=== PATIENT | female | born 1995 | race Hispanic/Latino ===

== ENCOUNTER 2020-09-01 12:43 | Emergency (ER) | payer OTHER ==
[2020-09-01 13:43] LABS: Urine Blood TRACE (NEG); Urine Glucose NEGATIVE (NEG); Urine Protein NEGATIVE (NEG); Urine Specific Gravity >1.030 (1.005-1.030); Urine pH 5.5 (5.0-7.0)
[2020-09-01 13:49] LABS: Urine Bacteria LOADED /HPF (<20); Urine Culture Reflex Order NOT NEEDED; Urine RBC <5 /HPF (NONE SEEN)
[2020-09-01 15:09] LABS: Absolute Lymphocytes (CBC) 2.4 K/uL (0.7-4.9); Basophils % 0.5 % (0-1.3); Hematocrit 41.8 % (36.0-45.0); Lymphocytes % 20.2 % (15.3-44.8); MPV 9.2 fL (7.6-11.3); RBC Red Blood Cell Count 4.67 M/uL (3.86-4.86)
[2020-09-01] MEDS ORDERED: CEFTRIAXONE/SWI 1gm 1 GM/10 ML SYR ONE (15:09)
[2020-09-01] MEDS ORDERED: NA CHLORIDE 0.9% 1,000 ML ONE (15:09)
[2020-09-01 15:41] LABS: BUN Blood Urea Nitrogen 10 mg/dL (7-18); Bicarbonate 27 mmol/L (21-32); Glucose Level 80 mg/dL (74-106); HCG, Quantitative 78497 mIU/mL (1-3); Potassium 3.6 mmol/L (3.5-5.1); Sodium Level 141 mmol/L (136-145)
--- NOTE | 2020-09-01 16:17 | ER ---
Nurse's Notes [facility] Name: Rosemary Dodd Age: 25 yrs Sex: Female : 1995 Arrival Date: 09/01/2020 Time: 12:46 Bed Ultrasound Private MD: Diagnosis: Dysuria;Urinary tract infection, site not specified; related conditions, unspecified, first trimester;Cholelithiasis;Threatened Presentation: 09/01 13:00 Chief complaint: Patient states: burning with urination since Tuesday, reports being 7 sv weeks . Coronavirus screen: Client denies travel out of the [place] in the last 14 days. At this time, the client does not indicate any symptoms associated with coronavirus-19. Ebola Screen: No symptoms or risks identified at this time. Risk Assessment: Do you want to hurt yourself or someone else? Patient reports no desire to harm self or others. Onset of symptoms was August 29, 2020. 13:00 Method Of Arrival: Ambulatory sv 13:00 Acuity: ROMELIA 4 sv 13:01 Initial Sepsis Screen: Does the patient meet any 2 criteria? No. Patient's initial sv sepsis screen is negative. Does the patient have a suspected source of infection? No. Patient's initial sepsis screen is negative. Triage Assessment: 13:03 General: Appears in no apparent distress. comfortable, Behavior is calm, cooperative, sv appropriate for age. Pain: Denies pain. Neuro: Level of Consciousness is awake, alert, obeys commands, Oriented to person, place, time, situation, Gait is steady. Respiratory: Respiratory effort is even, unlabored. : Reports burning with urination. 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 - Social history:: Smoking status: Patient denies any tobacco usage or history of. - Family history:: not pertinent. Screenin:03 Abuse screen: Denies threats or abuse. Denies injuries from another. Nutritional jl7 screening: No deficits noted. Tuberculosis screening: No symptoms or risk factors identified. Fall Risk IV access (20 points). Total Stovall Fall Scale indicates No Risk (0-24 pts). Assessment: 14:45 General: Appears in no apparent distress. uncomfortable, Behavior is calm, cooperative, jl7 appropriate for age. Pain: Complains of pain in right low back and right mid back Pain currently is 5 out of 10 on a pain scale. Neuro: Level of Consciousness is awake, alert, obeys commands, Oriented to person, place, time, situation. Cardiovascular: Patient's skin is warm and dry. Respiratory: Airway is patent Respiratory effort is even, unlabored, Respiratory pattern is regular, symmetrical. GI: Abdomen is round non-distended. : Reports burning with urination. Derm: Skin is pink, warm \T\ dry. 16:34 Reassessment: Pt has not returned from [place], will discharged pt after returning from [facility] and medicating as ordered. Vital Signs: 13:01 BP 108 / 74; Pulse 77; Resp 16; Temp 98.4; Pulse Ox 99% ; Weight 102.51 kg; Height 4 sv ft. 9 in. (144.78 cm); 13:01 Body Mass Index 48.90 (102.51 kg, 144.78 cm) sv ED Course: 12:46 Patient arrived in ED. ds1 13:00 Triage completed. sv 13:00 Arm band placed on. sv 14:36 Darren White MD is Attending Physician. olivier 14:42 Harleen Partida, KEIRY is Primary Nurse. jl7 15:03 Patient has correct armband on for positive identification. Placed in gown. Bed in low jl7 position. Call light in reach. Side rails up X 1. Pulse ox on. NIBP on. Warm blanket given. 15:03 Initial lab(s) drawn, by la, sent to lab. Urine collected: clean catch specimen, clear. jl7 Inserted saline lock: 22 gauge in left antecubital area, using aseptic technique. Blood collected. 16:12 US Transvaginal Ob In Process Unspecified. EDMS 16:17 Lenin Yousif MD is Referral Physician. [facility] 16:33 Abdomen Exam Limited In Process Unspecified. EDMS 17:07 No provider procedures requiring assistance completed. IV discontinued, intact, em bleeding controlled, No redness/swelling at site. Pressure dressing applied. Administered Medications: 14:55 Drug: NS 0.9% 1000 ml Route: IV; Rate: 1 bolus; Site: left antecubital; jl7 17:06 Follow up: IV Status: Order to discontinue infusion em 14:55 Drug: Rocephin 1 grams Route: IV; Rate: per protocol; Site: left antecubital; jl7 17:06 Follow up: Response: No adverse reaction; IV Status: Completed infusion; IV Intake: 10mlem 16:49 Drug: Augmentin 875 mg Route: PO; em 17:06 Follow up: Response: No adverse reaction em Intake: 17:06 IV: 10ml; Total: 10ml. em Outcome: 16:17 Discharge ordered by . olivier 17:07 Discharged to home ambulatory. em 17:07 Condition: good 17:07 Discharge instructions given to patient, Instructed on discharge instructions, follow up and referral plans. medication usage, safe sex practices, Demonstrated understanding of instructions, follow-up care, medications, Prescriptions given X 2. 17:07 Patient left the ED. em Addendum: 09/03/2020 08:26 Addendum: Culture Results: Positive urine culture. No further action required. Bacteria s s sensitive to prescribed antibiotic. Signatures: Dispatcher [employer] Trang Forte RN RN sv Anderson, Corey, MD MD cha Munoz, Edgar RN Kary Moreno ds1 Biibana Morrell RN RN ss Leal, Jahala, RN RN jl7 Corrections: (The following items were deleted from the chart) 09/01 13:03 13:01 Pulse 77bpm; Resp 16bpm; Pulse Ox 99%; Temp 98.4F; 102.51 kg; Height 4 ft. 9 in.; sv BMI: 48.9; sv
--- NOTE | 2020-09-01 16:17 | EDPHYS ---
Physician Documentation [facility] Name: Rosemary Dodd Age: 25 yrs Sex: Female : 1995 Arrival Date: 09/01/2020 Time: 12:46 Bed Ultrasound Private MD: Darren Land HPI: 09/01 14:51 This 25 yrs old Female presents to ER via Ambulatory with complaints of Back olivier Pain, 7 Wks Preg-Kidney Pain. 14:51 The patient complains of pain in the right mid back and right low back. The pain does olivier not radiate. Onset: The symptoms/episode began/occurred 3 day(s) ago. Modifying factors: The symptoms are alleviated by nothing. the symptoms are aggravated by nothing. The patient presents to the emergency department with urinary symptoms, dysuria, frequency. The estimated gestational age is 7 weeks. course: care: none. 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 - Social history:: Smoking status: Patient denies any tobacco usage or history of. - Family history:: not pertinent. ROS: 14:51 Constitutional: Negative for fever, chills, and weight loss, Eyes: Negative for injury, olivier pain, redness, and discharge, ENT: Negative for injury, pain, and discharge, Neck: Negative for injury, pain, and swelling, Cardiovascular: Negative for chest pain, palpitations, and edema, Respiratory: Negative for shortness of breath, cough, wheezing, and pleuritic chest pain, Abdomen/GI: Negative for abdominal pain, nausea, vomiting, diarrhea, and constipation, : Negative for injury, bleeding, discharge, and swelling, MS/Extremity: Negative for injury and deformity, Skin: Negative for injury, rash, and discoloration, Neuro: Negative for headache, weakness, numbness, tingling, and seizure, Psych: Negative for depression, anxiety, suicide ideation, homicidal ideation, and hallucinations, Allergy/Immunology: Negative for hives, rash, and allergies, Endocrine: Negative for neck swelling, polydipsia, polyuria, polyphagia, and marked weight changes, Hematologic/Lymphatic: Negative for swollen nodes, abnormal bleeding, and unusual bruising. 14:51 Back: Positive for decreased range of motion, pain at rest, flank pain, on the right. Exam: 14:51 Constitutional: This is a well developed, well nourished patient who is awake, alert, olivier and in no acute distress. Head/Face: Normocephalic, atraumatic. Eyes: Pupils equal round and reactive to light, extra-ocular motions intact. Lids and lashes normal. Conjunctiva and sclera are non-icteric and not injected. Cornea within normal limits. Periorbital areas with no swelling, redness, or edema. ENT: Nares patent. No nasal discharge, no septal abnormalities noted. Tympanic membranes are normal and external auditory canals are clear. Oropharynx with no redness, swelling, or masses, exudates, or evidence of obstruction, uvula midline. Mucous membranes moist. Neck: Trachea midline, no thyromegaly or masses palpated, and no cervical lymphadenopathy. Supple, full range of motion without nuchal rigidity, or vertebral point tenderness. No Meningismus. Chest/axilla: Normal chest wall appearance and motion. Nontender with no deformity. No lesions are appreciated. Cardiovascular: Regular rate and rhythm with a normal S1 and S2. No gallops, murmurs, or rubs. Normal PMI, no JVD. No pulse deficits. Respiratory: Lungs have equal breath sounds bilaterally, clear to auscultation and percussion. No rales, rhonchi or wheezes noted. No increased work of breathing, no retractions or nasal flaring. Abdomen/GI: Soft, non-tender, with normal bowel sounds. No distension or tympany. No guarding or rebound. No evidence of tenderness throughout. Female : Normal external genitalia. Skin: Warm, dry with normal turgor. Normal color with no rashes, no lesions, and no evidence of cellulitis. MS/ Extremity: Pulses equal, no cyanosis. Neurovascular intact. Full, normal range of motion. Neuro: Awake and alert, GCS 15, oriented to person, place, time, and situation. Cranial nerves II-XII grossly intact. Motor strength 5/5 in all extremities. Sensory grossly intact. Cerebellar exam normal. Normal gait. Psych: Awake, alert, with orientation to person, place and time. Behavior, mood, and affect are within normal limits. 14:51 Back: pain, that is mild, ROM is normal, normal spinal alignment noted, CVA tenderness, is absent. 16:30 Abdomen/GI: Inspection: abdomen appears normal, Bowel sounds: normal, Palpation: [facility] abdomen is soft and non-tender, Liver: no appreciated palpable abnormalities, Hernia: not appreciated. Vital Signs: 13:01 BP 108 / 74; Pulse 77; Resp 16; Temp 98.4; Pulse Ox 99% ; Weight 102.51 kg; Height 4 sv ft. 9 in. (144.78 cm); 13:01 Body Mass Index 48.90 (102.51 kg, 144.78 cm) sv MDM: 14:36 Patient medically screened. olivier 14:53 Differential diagnosis: nephrolithiasis, pyelonephritis, UTI, STD, threatened Ab. Data olivier reviewed: vital signs, nurses notes, lab test result(s), radiologic studies, ultrasound. Data interpreted: gluer and wedger: rate is 77 beats/min, Pulse oximetry: on room air is 99 %. Test interpretation: by ED physician or midlevel provider:. Counseling: I had a detailed discussion with the patient and/or guardian regarding: the historical points, exam findings, and any diagnostic results supporting the discharge/admit diagnosis, radiology results. 09/01 13:19 Order name: Urine Microscopic Only; Complete Time: 14:38 09/01 13:19 Order name: Urine Culture 09/01 13:21 Order name: Urine Dipstick--Ancillary (enter results); Complete Time: 14:38 09/01 13:21 Order name: Urine --Ancillary (enter results); Complete Time: 14:39 09/01 14:40 Order name: Quantitative Hcg; Complete Time: 16:04 [facility] 09/01 14:40 Order name: Abo/rh Typing; Complete Time: 15:13 [facility] 09/01 14:40 Order name: Basic Metabolic Panel; Complete Time: 16:04 [facility] 09/01 14:40 Order name: CBC with Diff; Complete Time: 15:21 [facility] 09/01 14:40 Order name: US Transvaginal Ob [facility] 09/01 16:25 Order name: LFT's [facility] 09/01 16:25 Order name: Lipase [facility] 09/01 16:32 Order name: Abdomen Exam Limited EDMS 09/01 14:40 Order name: IV Saline Lock; Complete Time: 14:54 [facility] 09/01 14:40 Order name: Labs collected and sent; Complete Time: 14:54 [facility] 09/01 14:40 Order name: NPO; Complete Time: 14:42 [facility] Administered Medications: 14:55 Drug: NS 0.9% 1000 ml Route: IV; Rate: 1 bolus; Site: left antecubital; jl7 17:06 Follow up: IV Status: Order to discontinue infusion em 14:55 Drug: Rocephin 1 grams Route: IV; Rate: per protocol; Site: left antecubital; jl7 17:06 Follow up: Response: No adverse reaction; IV Status: Completed infusion; IV Intake: 10mlem 16:49 Drug: Augmentin 875 mg Route: PO; em 17:06 Follow up: Response: No adverse reaction em Disposition: 09/01/20 16:17 Discharged to Home. Impression: Dysuria, Urinary tract infection, site not specified, related conditions, unspecified, first trimester, Cholelithiasis, Threatened . - Condition is Stable. - Discharge Instructions: Dysuria, Threatened Miscarriage, Urinary Tract Infection, Adult, Cholelithiasis, First Trimester of , Fysx-gt-Ipmt, Urinary Tract Infection, Adult, Pcdp-yz-Pzdh, First Trimester of , Threatened Miscarriage, Qnap-if-Qkic, Pelvic Rest. - Prescriptions for Augmentin 875- 125 mg Oral Tablet - take 1 tablet by ORAL route every 12 hours for 10 days; 20 tablet. Vitamin 27- 0.8 mg Oral Tablet - take 1 tablet by ORAL route once daily; 30 tablet. - Medication Reconciliation Form, Thank You Letter, Antibiotic Education, Prescription Opioid Use form. - Follow up: Private Physician; When: 2 - 3 days; Reason: Recheck today's complaints, Continuance of care, Re-evaluation by your physician. Follow up: Lenin Yousif; When: 2 - 3 days; Reason: Recheck today's complaints, Continuance of care, Re-evaluation by your physician. - Problem is new. - Symptoms have improved. Signatures: Dispatcher [employer] [facility] Trang Renee RN RN sv Anderson, Corey, MD MD cha Munoz, Edgar, RN RN em Leal, Jahala, RN RN jl7 Corrections: (The following items were deleted from the chart) 16:30 16:17 09/01/2020 16:17 Discharged to Home. Impression: Dysuria; Urinary tract olivier infection, site not specified; related conditions, unspecified, first trimester. Condition is Stable. Discharge Instructions: Dysuria, Urinary Tract Infection, Adult, First Trimester of , Pzqx-pv-Vfrf, Urinary Tract Infection, Adult, Tsfk-ta-Wqyf, First Trimester of , Pelvic Rest. Prescriptions for Augmentin 875-125 mg Oral Tablet - take 1 tablet by ORAL route every 12 hours for 10 days; 20 tablet, Vitamin 27-0.8 mg Oral Tablet - take 1 tablet by ORAL route once daily; 30 tablet. and Forms are Medication Reconciliation Form, Thank You Letter, Antibiotic Education, Prescription Opioid Use. Follow up: Private Physician; When: 2 - 3 days; Reason: Recheck today's complaints, Continuance of care, Re-evaluation by your physician. Follow up: Lenin Yousif; When: 2 - 3 days; Reason: Recheck today's complaints, Continuance of care, Re-evaluation by your physician. Problem is new. Symptoms have improved. olivier 16:32 14:51 Rp Exam Complete+US.RAD.BRZ ordered. EDMS EDMS 16:47 16:30 09/01/2020 16:17 Discharged to Home. Impression: Dysuria; Urinary tract olivier infection, site not specified; related conditions, unspecified, first trimester; Cholelithiasis. Condition is Stable. Discharge Instructions: Dysuria, Urinary Tract Infection, Adult, First Trimester of , Ocqb-qv-Zbyw, Urinary Tract Infection, Adult, Rhqq-pa-Pkeo, First Trimester of , Pelvic Rest. Prescriptions for Augmentin 875-125 mg Oral Tablet - take 1 tablet by ORAL route every 12 hours for 10 days; 20 tablet, Vitamin 27-0.8 mg Oral Tablet - take 1 tablet by ORAL route once daily; 30 tablet. and Forms are Medication Reconciliation Form, Thank You Letter, Antibiotic Education, Prescription Opioid Use. Follow up: Private Physician; When: 2 - 3 days; Reason: Recheck today's complaints, Continuance of care, Re-evaluation by your physician. Follow up: Lenin Yousif; When: 2 - 3 days; Reason: Recheck today's complaints, Continuance of care, Re-evaluation by your physician. Problem is new. Symptoms have improved. [facility] 17:07 16:47 09/01/2020 16:17 Discharged to Home. Impression: Dysuria; Urinary tract em infection, site not specified; related conditions, unspecified, first trimester; Cholelithiasis; Threatened . Condition is Stable. Discharge Instructions: Dysuria, Urinary Tract Infection, Adult, First Trimester of , Xxex-qu-Laup, Urinary Tract Infection, Adult, Jbge-ll-Hlba, First Trimester of , Pelvic Rest, Cholelithiasis. Prescriptions for Augmentin 875-125 mg Oral Tablet - take 1 tablet by ORAL route every 12 hours for 10 days; 20 tablet, Vitamin 27-0.8 mg Oral Tablet - take 1 tablet by ORAL route once daily; 30 tablet. and Forms are Medication Reconciliation Form, Thank You Letter, Antibiotic Education, Prescription Opioid Use. Follow up: Private Physician; When: 2 - 3 days; Reason: Recheck today's complaints, Continuance of care, Re-evaluation by your physician. Follow up: Lenin Yousif; When: 2 - 3 days; Reason: Recheck today's complaints, Continuance of care, Re-evaluation by your physician. Problem is new. Symptoms have improved. [facility]
[2020-09-01] MEDS ORDERED: AMOX/K CLAV 875 MG TAB ONE (16:33)
[2020-09-01 16:56] LABS: Albumin 3.8 g/dL (3.4-5.0); Bilirubin Direct 0.1 mg/dL (0-0.2); Bilirubin Total 0.4 mg/dL (0.2-1.0); Protein, Total 8.2 g/dL (6.4-8.2)
--- NOTE | 2020-09-01 17:38 | RAD REPORT ---
EXAM DESCRIPTION: US - Transvaginal OB - 09/01/2020 4:12 pm CLINICAL HISTORY: ABD CRAMPING, COMPARISON: OB Complete dated 08/21/2018 FINDINGS: Endovaginal sonography shows a normal shaped intrauterine gestational sac. Yolk sac and fe brittney pole are identified. Heart rate is 131 BPM. Gestational sac and crown-rump length measurements setswana eld a 6 week 5 day age. Calculated LEEROY is 04/22/2021. A small subchorionic hemorrhages present along the inferior margin of the gestational sac. This abuts only a small portion of the sac. At 19 x 12 x 8 mm, this hemorrhage is not regarded as significant. Cervical canal is closed. Both ovaries are identified and show normal blood flow. No adnexal abnormalities. IMPRESSION: Single 6 week 5 day IUP. LEEROY is 04/22/2021. Normal heart rate is seen. A 19 millimeter subchorionic hemorrhages present not regarded as clinically significant at this size.
[2020-09-01 17:40] VITALS: BP 108/74; TEMP 98.4; O2SAT 99
--- NOTE | 2020-09-01 18:14 | RAD REPORT ---
EXAM DESCRIPTION: US - Abdomen Exam Limited - 09/01/2020 4:32 pm CLINICAL HISTORY: PAIN, right abdomen and flank pain COMPARISON: No comparisons FINDINGS: Gallbladder is contracted which accentuates wall thickness. This is probably due to nonfas ting state. There are multiple gallstones present in the lumen. No pericholecystic fluid. Gallbladder wall does not appear edematous. No biliary tree dilatation. A duct stone is not identified. Both kidneys are identified and show no hydronephrosis. No evidence for nonobstructing renal calculi. IMPRESSION: No hydronephrosis. No nonobstructing renal calculi seen. Multi stone cholelithiasis within a contracted gallbladder. This accentuates wall thickness. No peric holecystic fluid common duct stone or biliary tree dilatation. Acute cholecystitis not suspected.
== END 2020-09-01 17:07 | disposition home or self-care (01) ==
LOC: MERGE 12:43 → ER 12:43
DX: O20.0 Threatened abortion (principal); O23.41 Unspecified infection of urinary tract in pregnancy, first trimester; K80.20 Calculus of gallbladder without cholecystitis without obstruction; O99.611 Diseases of the digestive system complicating pregnancy, first trimester; Z3A.01 Less than 8 weeks gestation of pregnancy
CPT/HCPCS: 96365; 87088; 85025; 87086; 80048; 36415; 86900; 81025; 86901; 80076; 84702; 87077; 87186; 83690; 76705; 76817; 99284; 96366; J0696; J7030; 81003; 81015

== ENCOUNTER 2020-09-03 13:01 | Emergency (ER) | payer OTHER ==
--- NOTE | 2020-09-03 14:18 | ER ---
Nurse's Notes [facility] Name: Rosemary Quintana Age: 25 yrs Sex: Female : 1995 Arrival Date: 09/03/2020 Time: 13:03 Bed 6 Private MD: Diagnosis: Threatened ;Less than 8 weeks gestation of ;Urinary tract infection, site not specified Presentation: 09/03 13:22 Chief complaint: Patient states: "I was here a couple of days ago. I was told if I jd3 started spotting to come back. I am currently 7 weeks .". Coronavirus screen: At this time, the client does not indicate any symptoms associated with coronavirus-19. Ebola Screen: Patient negative for fever greater than or equal to 101.5 degrees Fahrenheit, and additional compatible Ebola Virus Disease symptoms. Initial Sepsis Screen: Does the patient meet any 2 criteria? No. Patient's initial sepsis screen is negative. Does the patient have a suspected source of infection? No. Patient's initial sepsis screen is negative. Risk Assessment: Do you want to hurt yourself or someone else? Patient reports no desire to harm self or others. Onset of symptoms was September 03, 2020. 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 - Social history:: Smoking status: Patient/guardian denies using tobacco, the patient reports quitting approximately 2 years ago. Screenin:10 Abuse screen: Denies threats or abuse. Nutritional screening: No deficits noted. tw2 Tuberculosis screening: No symptoms or risk factors identified. Fall Risk None identified. Assessment: 13:50 General: Appears in no apparent distress. well groomed, Behavior is calm, cooperative, tw2 appropriate for age. Pain: Denies pain. Neuro: Level of Consciousness is awake, alert, obeys commands, Oriented to person, place, time, situation. Cardiovascular: Patient's skin is warm and dry. Respiratory: Airway is patent Respiratory effort is even, unlabored, Respiratory pattern is regular, symmetrical. GI: No signs and/or symptoms were reported involving the gastrointestinal system. : Urine is marleny urine noted Reports vaginal bleeding that is bright red. EENT: No signs and/or symptoms were reported regarding the EENT system. Derm: No signs and/or symptoms reported regarding the dermatologic system. Musculoskeletal: Range of motion: intact in all extremities. 14:23 Reassessment: Patient appears in no apparent distress at this time. No changes from tw2 previously documented assessment. Patient and/or family updated on plan of care and expected duration. Pain level reassessed. Patient is alert, oriented x 3, equal unlabored respirations, skin warm/dry/pink. Vital Signs: 13:24 BP 108 / 73; Pulse 82; Resp 17 S; Temp 98.6(TE); Pulse Ox 100% on R/A; Weight 102.51 kg jd3 (R); Height 4 ft. 9 in. (144.78 cm) (R); Pain 0/10; 13:24 Body Mass Index 48.90 (102.51 kg, 144.78 cm) jd3 ED Course: 13:03 Patient arrived in ED. ag5 13:23 Triage completed. jd3 13:26 Arm band placed on. jd3 13:46 Wendie Elizondo [facility]-C [facility]. kb 13:46 Aamir Jones MD is Attending Physician. kb 13:50 Bed in low position. Call light in reach. Pulse ox on. NIBP on. tw2 14:09 Nora Thompson RN is Primary Nurse. tw2 14:23 No provider procedures requiring assistance completed. Patient did not have IV access tw2 during this emergency room visit. Administered Medications: No medications were administered Outcome: 14:18 Discharge ordered by . kb 14:23 Discharged to home ambulatory. tw2 14:23 Condition: stable 14:23 Discharge instructions given to patient, Instructed on discharge instructions, follow up and referral plans. Demonstrated understanding of instructions, follow-up care. 14:24 Patient left the ED. tw2 Signatures: eWndie Elizondo FNP-C FNP-Nora Martin RN RN tw2 Jose Lackey RN RN jd3 Moy, Ajare ag5
--- NOTE | 2020-09-03 14:19 | EDPHYS ---
Physician Documentation [facility] Name: Rosemary Quintana Age: 25 yrs Sex: Female : 1995 Arrival Date: 09/03/2020 Time: 13:03 Bed 6 Private MD: ED Physician Aamir Jones HPI: 09/03 14:16 This 25 yrs old Female presents to ER via Ambulatory with complaints of kb Vaginal Bleeding. 14:16 The patient presents to the emergency department with vaginal bleeding, described as kb spotting. The estimated gestational age is 7 weeks. course: care: private OB physician, Dr. Yousif, Ultrasound: the patient had an ultrasound, which was normal. Previous pregnancies: in previous pregnancies patient has had. Associated signs and symptoms: Pertinent positives: vaginal bleeding, Pertinent negatives: abdominal pain, chest pain, diarrhea, dysuria, fever, frequency, nausea, ruptured membranes, seizure, shortness of breath, vaginal discharge, vomiting. The patient has not experienced similar symptoms in the past. The patient has been recently seen at the [facility], this week, for similar complaints labs were performed, an ultrasound was performed. Pt reports spotting at 0800 and 1100 this morning. . 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 - Social history:: Smoking status: Patient/guardian denies using tobacco, the patient reports quitting approximately 2 years ago. ROS: 14:11 Constitutional: Negative for fever, chills, and weight loss, Cardiovascular: Negative kb for chest pain, palpitations, and edema, Respiratory: Negative for shortness of breath, cough, wheezing, and pleuritic chest pain, Abdomen/GI: Negative for abdominal pain, nausea, vomiting, diarrhea, and constipation, Back: Negative for injury and pain, MS/Extremity: Negative for injury and deformity, Skin: Negative for injury, rash, and discoloration, Neuro: Negative for headache, weakness, numbness, tingling, and seizure. 14:11 : Positive for vaginal bleeding. Exam: 14:11 Constitutional: This is a well developed, well nourished patient who is awake, alert, kb and in no acute distress. Head/Face: Normocephalic, atraumatic. Chest/axilla: Normal chest wall appearance and motion. Nontender with no deformity. No lesions are appreciated. Cardiovascular: Regular rate and rhythm with a normal S1 and S2. No gallops, murmurs, or rubs. Normal PMI, no JVD. No pulse deficits. Respiratory: Lungs have equal breath sounds bilaterally, clear to auscultation and percussion. No rales, rhonchi or wheezes noted. No increased work of breathing, no retractions or nasal flaring. Abdomen/GI: Soft, non-tender, with normal bowel sounds. No distension or tympany. No guarding or rebound. No evidence of tenderness throughout. Skin: Warm, dry with normal turgor. Normal color with no rashes, no lesions, and no evidence of cellulitis. MS/ Extremity: Pulses equal, no cyanosis. Neurovascular intact. Full, normal range of motion. Neuro: Awake and alert, GCS 15, oriented to person, place, time, and situation. Cranial nerves II-XII grossly intact. Motor strength 5/5 in all extremities. Sensory grossly intact. Cerebellar exam normal. Normal gait. Vital Signs: 13:24 BP 108 / 73; Pulse 82; Resp 17 S; Temp 98.6(TE); Pulse Ox 100% on R/A; Weight 102.51 kg jd3 (R); Height 4 ft. 9 in. (144.78 cm) (R); Pain 0/10; 13:24 Body Mass Index 48.90 (102.51 kg, 144.78 cm) jd3 MDM: 13:52 Patient medically screened. kb 14:12 Data reviewed: vital signs, nurses notes. Data interpreted: Pulse oximetry: on room air kb is 100 %. Interpretation: normal. Counseling: I had a detailed discussion with the patient and/or guardian regarding: the historical points, exam findings, and any diagnostic results supporting the discharge/admit diagnosis, lab results, the need for outpatient follow up, an OB/Gyne specialist, to return to the emergency department if symptoms worsen or persist or if there are any questions or concerns that arise at home. ED course: Labs and US reviewed from previous visit. Pt was registered under [facility] Quirogaiveros on 09/01/20. Vaginal US revealed IUP measuring 6 weeks 5 days with normal heart rate and 19mm subchorionic hemorrhage. Pt is O positive. Pt was diagnosed with UTI and prescribed augmentin. PT states she is still taking antibiotics. Educated to continue antibiotics and follow up with OB. Pt will return for heavy bleeding, severe pain or any other concerns. . 09/03 14:14 Order name: Urine Dipstick--Ancillary (enter results) bd 09/03 14:14 Order name: Urine --Ancillary (enter results) bd 09/03 13:28 Order name: Urine Dipstick-Ancillary (obtain specimen); Complete Time: 14:09 kb 09/03 13:28 Order name: Urine Test (obtain specimen); Complete Time: 14:09 kb Administered Medications: No medications were administered Disposition: 16:31 Co-signature as Attending Physician, Aamir Jones MD. rn Disposition: 09/03/20 14:18 Discharged to Home. Impression: Threatened , Less than 8 weeks gestation of , Urinary tract infection, site not specified. - Condition is Stable. - Discharge Instructions: Vaginal Bleeding During , First Trimester, First Trimester of , [id number], and Urinary Tract Infection, Threatened Miscarriage, [id number]. - Medication Reconciliation Form, Thank You Letter, Antibiotic Education, Prescription Opioid Use form. - Follow up: Emergency Department; When: As needed; Reason: Worsening of condition. Follow up: Private Physician; When: 2 - 3 days; Reason: Recheck today's complaints, Continuance of care, Re-evaluation by your physician. Signatures: Dispatcher [employer] EDMS Wendie Elizondo, YARELIS-C INFORMATION SECURITY SPECIALIST-Aamir Ackerman MD MD rn Wise, Tara RN RN tw2 Jose Lackey RN RN jd3 Corrections: (The following items were deleted from the chart) 14:16 14:12 ED course: Labs and US reviewed from previous visit. Pt was registered under abiel Dodd on 09/01/20. Vaginal US revealed IUP measuring 6 weeks 5 days with normal heart rate and small subchorionic hematoma. Pt is A positive. Pt was diagnosed with UTI and prescribed augmentin. PT states she is still taking antibiotics. Educated to continue antibiotics and follow up with OB. Pt will return for heavy bleeding, severe pain or any other concerns. . kb 14:24 14:18 09/03/2020 14:18 Discharged to Home. Impression: Threatened ; Less than 8 tw2 weeks gestation of ; Urinary tract infection, site not specified. Condition is Stable. Forms are Medication Reconciliation Form, Thank You Letter, Antibiotic Education, Prescription Opioid Use. Follow up: Emergency Department; When: As needed; Reason: Worsening of condition. Follow up: Private Physician; When: 2 - 3 days; Reason: Recheck today's complaints, Continuance of care, Re-evaluation by your physician. kb
[2020-09-03 15:02] VITALS: BP 108/73; TEMP 98.6; O2SAT 100
[2020-09-03 15:34] LABS: Urine Blood 1+ (NEG); Urine Glucose TRACE (NEG); Urine Protein NEGATIVE (NEG); Urine Specific Gravity >1.030 (1.005-1.030)
== END 2020-09-03 14:24 | disposition home or self-care (01) ==
LOC: ER 13:01
DX: O20.0 Threatened abortion (principal); O23.41 Unspecified infection of urinary tract in pregnancy, first trimester; Z3A.01 Less than 8 weeks gestation of pregnancy
CPT/HCPCS: 81003; 81025; 99283

== ENCOUNTER 2021-04-13 04:10 | Inpatient (IN) | payer OTHER ==
[~2021-04-13 04:10] MED LIST: BUTORPHANOL 1 MG/ML INJ IV PRN; CARBOPROST TROME 250 MCG/ML IM PRN; METHYLERGONOVINE 0.2MG/ML AMP IM PRN; OXYTOCIN/LR 20 UNIT/1,000 ML BAG IV SCH; PENICILLIN 5 MU in NA CHLORIDE 0.9% 100 ML IV ONE; PROMETHAZINE INJ 25 MG/ML AMP IM PRN; Ringers Lactate 1,000 ML IV PRN; Ringers Lactate 1,000 ML IV SCH
[2021-04-13 05:00] VITALS: BMI 54.1
[2021-04-13 05:21] LABS: Absolute Lymphocytes (CBC) 2.8 K/uL (0.7-4.9); Basophils % 0.1 % (0-1.3); Hematocrit 34.5 % (36.0-45.0); Lymphocytes % 26.7 % (15.3-44.8); MPV 9.4 fL (7.6-11.3); RBC Red Blood Cell Count 3.85 M/uL (3.86-4.86)
[2021-04-13] MEDS ORDERED: FENTANYL/BUPIVACAINE/NS/PF 200 MCG/100 ML BAG EP PRN (07:30)
[2021-04-13] MEDS ORDERED: 0.2% ROPIVACAINE (200 MG/100 ML) BAG EP ONE (07:30)
[2021-04-13] MEDS ORDERED: FENTANYL CITR 100 MCG/2 ML IV ONE (07:31)
[2021-04-13] MEDS ORDERED: LIDOCAINE 1% 20 ML MDV ONE (08:34)
[2021-04-13] MEDS ORDERED: PENICILLIN 2.5 MU in NA CHLORIDE 0.9% 100 ML IV SCH (08:45)
--- NOTE | 2021-04-13 09:07 | PREOPHP ---
Date of Admission: 04/13/2021 History Of Present Illness: A 25-year-old 3, para 2, 39 weeks 1 day, followed antepartum wit hout complications for induction. Pros and cons of this thoroughly discussed prior to admission. Family History: She has an aunt with hypertension, an uncle and aunt with diabetes. No other signif icant family history. Past Medical History: No serious diseases. Past Surgical History: No previous surgeries. Allergies: NO ALLERGIES. Medications: She was not taking any medications prior to admission other than vitamins and iron. Social History: Does not smoke. Physical Examination: HEENT: Clear. Pupils equal, round, reactive to light and accommodation. Conjunctivae well perfused . No oral, lingual, or buccal lesions. Chest and Lungs: Clear. Heart: Without murmurs, thrills, heaves, or rubs. Breasts: Not examined. Abdomen: Term size. Extremities: Clear. Cervix: 3 to 3.5, baby is still at -1 station with contraction, -2. Assessment And Plan: In between contractions, we will wait for further descent of the vertex before we rupture membranes. She knows if it ruptures spontaneously, to tell nurse so she can be checked im mediately. She is rubella immune, Rh positive, strep positive, and is receiving antibiotics. I will check her again in an hours to see if the baby has come down further and then we can rupture membranes. Full labor talk given. KRYS/OSVALDO Voice ID: [id number]
--- NOTE | 2021-04-13 09:29 | PN ---
The patient is anastasia every 3 minutes. She has had her first dose of penicillin several hours a go. She is now 4.5 cm, baby is -1 station, well applied, rupture of membranes, clear fluid. Anticip ate more rapid progress from this point forward. KRYS/OSVALDO Voice ID: [id number] Report ID: [id number]
[2021-04-13] MEDS ORDERED: ROPIVACAINE HCL 0 ML ONE (10:27)
[2021-04-13] MEDS ORDERED: BISACODYL 10 MG RECTAL SUPP RC PRN (11:43)
[2021-04-13] MEDS ORDERED: ACETAMINOPHEN 500 MG TAB PO PRN (11:43)
[2021-04-13] MEDS ORDERED: DOCUSATE NA/SENNA CONC 1 TAB PO PRN (11:43)
[2021-04-13] MEDS ORDERED: DIPHENHYDRAMINE 25 MG TAB/CAP PO PRN (11:43)
[2021-04-13] MEDS ORDERED: Oxycodone HCl/Acetaminophen 1 TAB TAB PO PRN ×2 (11:43)
[2021-04-13] MEDS ORDERED: OXYTOCIN/LR 20 UNIT/1,000 ML BAG IV SCH (12:00)
--- NOTE | 2021-04-13 12:20 | OP ---
Surgeon: Lenin Yousif MD Indication And Procedure: This is a 25-year-old 3, para 2, 39 weeks 1 day, 3 cm when I first examined by myself, this morning at approximately 3.5 to 4 cm rupture of membranes, clear fluid. Th e patient went into an active labor pattern. Stadol 1 mg IV, Phenergan 25 mg IM x1. The patient the n requested and received epidural anesthesia. Shortly thereafter, she was noted to be complete, seco nd stage of about 10 minutes. Spontaneous vaginal delivery of a 7-pound 14-ounce female. Shoulder h arness type cord. Apgars 8 and 9. No episiotomy. No lacerations. Schultze delivery of the placent a, which inspected and noted to be intact and normal. Less than 200 cc blood loss. The patient was Strep positive. Given penicillin prophylaxis during the labor. Tolerated all procedures well. Final Diagnoses: Term intrauterine at 39 weeks 1 day, labor induction, vaginal delivery, e pidural anesthesia, penicillin prophylaxis. The patient is Rh positive, immune to rubella, negative COVID. NBC/MODL Voice ID: [id number] Report ID: [id number]
[2021-04-13] MEDS: IBUPROFEN 600 MG TAB PO PRN (21:50)
[2021-04-14 00:21] LABS: RPR (Rapid Plasma Reagin) NON-REACT (NON-REACT)
[2021-04-14] MEDS: IBUPROFEN 600 MG TAB PO PRN (08:21)
[2021-04-14 09:02] VITALS: TEMP 97.8
--- NOTE | 2021-04-14 10:51 | DS ---
Hospital Course: Rosemary 3, para 2, 39 weeks 1 day, delivered a 7-pounds 14-ounce female, Apgars 8 and 9. Shoulder harness type cord, but baby had no significant problems. Epidural anesthesia. No episiotomy. No lacerations worthy of suturing. Schultze delivery of the placenta. Estimated blood loss 200 mL or less. The patient received penicillin prophylaxis during the labor x 2 doses. ; afebrile, ambulating and voiding. Lochia is normal. She will be dismissed lat er today to report back to my office in 6 weeks for followup to report any temperature elevation of 1 00 degrees or greater, severe pain, heavy bleeding, or any other type of abnormalities. Rubella immu ne. Strep positive. COVID negative. Tdap has been taken during the . No post epidural pr oblems. Final Diagnoses: Term intrauterine at 39 weeks 1 day, labor induction, vaginal delivery, e pidural anesthesia, penicillin prophylaxis. KRYS/OSVALDO Voice ID: [id number] Report ID: [id number]
[2021-04-14 12:37] VITALS: BP 120/71
[2021-04-15 04:19] LABS: HBsAG Nonreactive (Nonreactive)
== END 2021-04-14 14:10 | disposition home or self-care (01) | DRG 807 ==
LOC: 2ND-WC 04:10
PROVIDERS: ADMIT Specialist; ATTEND Specialist
PROC: 10E0XZZ Delivery of Products of Conception, External Approach (ICD-10-PCS; principal; 2021-04-13)
PROC: 10907ZC Drainage of Amniotic Fluid, Therapeutic from Products of Conception, Via Natural or Artificial Opening (ICD-10-PCS; 2021-04-13)
PROC: 3E033VJ Introduction of Other Hormone into Peripheral Vein, Percutaneous Approach (ICD-10-PCS; 2021-04-13)
DX: O99.824 Streptococcus B carrier state complicating childbirth (principal); Z37.0 Single live birth; Z3A.39 39 weeks gestation of pregnancy; Z20.822 Contact with and (suspected) exposure to COVID-19
CPT/HCPCS: 36415; 85025; 86592; 86850; 86900; 86901; 87340; J0595; J2210; J2540; J2550; J2590; J2795; J3010; J7120; U0003

== ENCOUNTER 2021-05-28 06:32 | Day surgery (SDC) | payer OTHER ==
[2021-05-25 15:18] LABS: Absolute Lymphocytes (CBC) 2.1 K/uL (0.7-4.9); Basophils % 0.6 % (0-1.3); Hematocrit 39.4 % (36.0-45.0); Lymphocytes % 28.5 % (15.3-44.8); MPV 8.5 fL (7.6-11.3); RBC Red Blood Cell Count 4.37 M/uL (3.86-4.86)
[2021-05-25 15:41] LABS: Albumin 3.5 g/dL (3.4-5.0); Bilirubin Direct 0.1 mg/dL (0-0.2); Bilirubin Total 0.4 mg/dL (0.2-1.0); Protein, Total 7.6 g/dL (6.4-8.2)
[2021-05-28 06:53] LABS: Specific Gravity 1.015 (1.005-1.030)
[2021-05-28] MEDS ORDERED: Ringers Lactate 1,000 ML IV ONE ×2 (07:13→10:59)
[2021-05-28] MEDS ORDERED: CEFOXITIN/SWI 1gm 1 GM/10 ML SYR ONE (07:14)
[2021-05-28] MEDS ORDERED: BUPIVACAINE 0.5% PF 10 ML VIAL ONE ×2 (07:23→08:40)
[2021-05-28 08:12] LABS: ALT/SGPT 107 U/L (12-78); AST/SGOT 57 U/L (15-37); Albumin 3.5 g/dL (3.4-5.0); Alkaline Phosphatase 106 U/L (45-117); Bilirubin Direct < 0.1 mg/dL (0-0.2); Bilirubin Total 0.4 mg/dL (0.2-1.0); Protein, Total 7.1 g/dL (6.4-8.2)
--- NOTE | 2021-05-28 10:18 | RAD REPORT ---
EXAM DESCRIPTION: MRICholangiogram05/28/2021 10:10 am CLINICAL HISTORY: Abdominal pain COMPARISON: none TECHNIQUE: Magnetic resonance cholangiogram was performed.3D MIP reconstruction performed FINDINGS: Multiple gallstones. Gallbladder wall is not thickened The biliary tree is normal caliber without a filling defect. Pancreatic duct is normal caliber IMPRESSION: Cholelithiasis
[2021-05-28] MEDS ORDERED: LIDOCAINE 1% MPF 5 ML VIAL ONE (10:54)
[2021-05-28] MEDS ORDERED: FENTANYL CITR 100 MCG/2 ML ONE (10:54)
[2021-05-28] MEDS ORDERED: MIDAZOLAM HCL 2 MG/2 ML INJ ONE ×2 (10:54→11:04)
[2021-05-28] MEDS ORDERED: propofoL 200 MG/20 ML VIAL IV ONE (10:54)
[2021-05-28] MEDS ORDERED: ROCURONIUM 50 MG/5 ML VIAL IV ONE (10:55)
[2021-05-28] MEDS ORDERED: dexAMETHasone 10 MG/ML VIAL ONE (11:29)
[2021-05-28] MEDS ORDERED: ONDANSETRON 4 MG/2 ML VIAL ONE (11:29)
[2021-05-28] MEDS ORDERED: KETOROLAC 30 MG/ML INJ ONE (11:29)
[2021-05-28] MEDS ORDERED: GLYCOPYRROLATE 0.2 MG/ML SYR ONE ×2 (11:45→11:57)
[2021-05-28] MEDS: HYDROMORPHONE HCL 1 MG/ML INJ ONE ×2 (11:59→12:06)
[2021-05-28] MEDS ORDERED: NEOSTIGMINE 1 MG/ML -5 ML ONE (12:05)
[2021-05-28] MEDS ORDERED: PROMETHAZINE INJ 25 MG/ML AMP ONE (12:27)
--- NOTE | 2021-05-28 12:47 | OP ---
Date of Procedure: 05/28/2021 Surgeon: Leland Chilel MD Documentation Clerk: RAMÍREZ Shepherd Preoperative Diagnosis: Symptomatic cholelithiasis. Postoperative Diagnosis: Symptomatic cholelithiasis. Procedure: Laparoscopic cholecystectomy. Estimated Blood Loss: Minimal. Specimen: Gallbladder. Findings: As above. Anesthesia: General. Complications: None. Disposition: The patient tolerated the procedure in stable condition and taken to Recovery in good g eneral condition. Please note, the patient had elevated liver function tests on the preop testing and that was repeated and was still slightly elevated. MRCP was done, which was negative for any common bile duct. Procedure In Detail: The patient was brought the OR, placed in prone position. General anesthesia b egun. The patient was prepped and draped in the usual sterile fashion. Marcaine 0.5% infiltrated lo jr. A 15-blade was used to make a 1 cm infraumbilical midline incision. Subcutaneous tissue was divided. Fascia was identified and divided. A #1 Vicryl stay suture was placed. Peritoneal cavity was entered with sharp and blunt dissection. A 12 mm trocar was placed into the peritoneal cavity un garland direct vision. Pneumoperitoneum was established. Then, three 5 mm trocars were placed, 1 in the epigastrium just to the right of midline and 2 in the right subcostal region. Laparoscopy revealed chronic inflammation of the gallbladder. Fundus was retracted superiorly. Infundibulum was identifi ed and retracted inferolaterally. Cystic duct and cystic artery were clearly identified with blunt d issection. Clips were placed. Both structures were divided. Cautery was used to remove the gallbla dder from the liver bed. Bleeding on the liver bed was controlled with cautery. Gallbladder was ret rieved through the umbilicus via an EndoCatch bag. Right upper quadrant was irrigated. Effluent was clear. No evidence of bleeding or bile leakage appreciated. Subsequently, all trocars were removed under direct vision. Stay sutures were tied to each other to reapproximate the fascial defect. Sub cutaneous wounds were irrigated. Bleeding was controlled with cautery. A 3-0 chromic was used to ap proximate the subcutaneous tissue and close the skin. Sterile dressing applied. The patient was anita kened and taken to Recovery in good general condition. Discharge Note: The patient will go to day surgery and home when stable. Condition: Stable. Discharge Instructions: Resume home medications and diet. Activity as tolerated. No heavy lifting. Remove outer dressing in 2 days. Shower. Keep wound clean and dry. Keep Steri-Strips on at all t imes. Followup in my office in 1 week. Call for appointment. Tylenol No.3 one tablet p.o. q.4 p.r. n. pain. /OSVALDO Voice ID: [id number] Report ID: [id number]
[2021-05-28] MEDS ORDERED: MEPERIDINE HCL 25 MG/ML SYR ONE (13:19)
[2021-05-28] MEDS ORDERED: HYDROCODONE/APAP 7.5/325 MG TAB ONE (14:13)
[2021-05-28] MEDS ORDERED: HYDROCODONE/APAP 7.5/325 MG TAB PO ONE (14:35)
[2021-05-28 14:59] VITALS: BP 145/84; TEMP 97.5; O2SAT 98
== END 2021-05-28 14:55 | disposition home or self-care (01) ==
LOC: OR 06:32
PROVIDERS: ATTEND Surgery
PROC: 0FT44ZZ Resection of Gallbladder, Percutaneous Endoscopic Approach (ICD-10-PCS; principal; 2021-05-28 07:30)
DX: K80.10 Calculus of gallbladder with chronic cholecystitis without obstruction (principal); Z20.822 Contact with and (suspected) exposure to COVID-19
CPT/HCPCS: 85025; 36415 ×2; 82150; 81025; 80076 ×2; 88304; 74181; 47562; U0003; J2704; J2550; J2250 ×2; J3010; J1100; J2175; J1170; J2710; J7120 ×2; J2405

== ENCOUNTER 2022-04-19 04:28 | Inpatient (IN) | payer OTHER ==
[~2022-04-19 04:28] MED LIST changes: -CARBOPROST TROME 250 MCG/ML IM PRN; -OXYTOCIN/LR 20 UNIT/1,000 ML BAG IV SCH; -PENICILLIN 5 MU in NA CHLORIDE 0.9% 100 ML IV ONE
[2022-04-19] MEDS ORDERED: MEPERIDINE HCL 25 MG/ML SYR IV PRN (04:31)
[2022-04-19] MEDS ORDERED: CARBOPROST TROME 250 MCG/ML IM PRN (04:31)
--- OUTSIDE RECORDS SUMMARY | 2022-04-19 04:32 | XMS REPORT | Continuity of Care Document ---
:1995 Author Organization [facility] t Address [address] [place] [address] Care Team Providers Name Role Phone Kentrell Mc DO Attending Clinician Sofia ALVARADO Attending Clinician Unavailable Kristen SANTOYO R Attending Clinician Visit, Nurse Attending Clinician Unavailable Trent Chaudhari Attending Clinician Trent DICKERSON Attending Clinician Unavailable Payers Payer Name Policy Type Policy Number Effective Date Expiration Date S ource Problems Condition Condition Condition Status Onset Resolution Last Treating Co mments Source Name Details Category Date Date Treatment Clinician Date Other Other Disease Active Univers general general 7-24 ity of counseling [place] advice 00 [place] dical for [facility] contracept contracept yousif yousif management management Morbid Morbid Disease Active [facility] obesity obesity 7-24 ity of 00:00: [address] Allergies, Adverse Reactions, Alerts Allergy Allergy Status Severity Reaction(s) Onset Inactive Treating Comm ents Source Name Type Date Date Clinician NO KNOWN Drug Active Univers ALLERGIE Class ity of S [facility] Social History Social Habit Start Date Stop Date Quantity Comments Source History of Cigarette Smoker Universi ty of tobacco use [facility] Exposure to Not sure University of SARS-CoV-2 [facility] (event) Exchange Tobacco use and 2020-05-23 2020-05-23 Never used Universit y of exposure 00:00:00 00:00:00 [facility] Alcohol intake 2020-05-23 2020-05-23 Current University of 00:00:00 00:00:00 non-drinker of [facility] alcohol (finding) Exchange Sex Assigned At [birth year] Universit y of 00:00:00 00:00:00 [facility] Smoking Status Start Date Stop Date Source Former smoker 2020-05-23 00:00:00 2020-05-23 00:00:00 Universi ty of [facility] Medications Ordered Filled Start Stop Current Ordering Indication Dosage Frequency Signature Comments Components Source Medication Medication Date Date Medication? Clinician (SIG) Name Name norelgestro 2020-0 Yes [id number] 1{patch Apply 1 Univers min-ethinyl 3-30 } Patch to ity of estradiol 00:00: [facility] weekly. Medical 150-35 Branch mcg/24 hr patch norelgestro 2020-0 Yes [id number] 1{patch Apply 1 Univers min-ethinyl 3-30 } Patch to ity of estradiol 00:00: [facility]) weekly. Medical 150-35 Branch mcg/24 hr patch norelgestro 2020-0 Yes [id number] 1{patch Apply 1 Univers min-ethinyl 3-30 } Patch to ity of estradiol 00:00: [facility]) weekly. Medical 150-35 Branch mcg/24 hr patch norelgestro 2020-0 Yes [id number] 1{patch Apply 1 Univers min-ethinyl 3-30 } Patch to ity of estradiol 00:00: [facility]) weekly. Medical 150-35 Branch mcg/24 hr patch norelgestro 2020-0 Yes [id number] 1{patch Apply 1 Univers min-ethinyl 3-30 } Patch to ity of estradiol 00:00: [facility]) weekly. Medical 150-35 Branch mcg/24 hr patch norelgestro 2020-0 Yes [id number] 1{patch Apply 1 Univers min-ethinyl 3-30 } Patch to ity of estradiol 00:00: [facility]) weekly. Medical 150-35 Branch mcg/24 hr patch Nitrofurant 2015-1 Yes 100mg Take 1 Cap Univers oin&Nit. 0-31 by mouth 2 ity o f Macrocryst 00:00: (two) [place] (MACROBID) 00 times Medical 100 mg daily. Branch capsule Nitrofurant 2014-10 Yes 100mg Take 1 Cap Univers oin&Nit. 0-31 by mouth 2 ity o f Macrocryst 00:00: (two) [place] (MACROBID) 00 times Medical 100 mg daily. Branch capsule Nitrofurant 2014-10 Yes 100mg Take 1 Cap Univers oin&Nit. 0-31 by mouth 2 ity o f Macrocryst 00:00: (two) [place] (MACROBID) 00 times Medical 100 mg daily. Branch capsule Nitrofurant 2014-10 Yes 100mg Take 1 Cap Univers oin&Nit. 0-31 by mouth 2 ity o f Macrocryst 00:00: (two) [place] (MACROBID) 00 times Medical 100 mg daily. Branch capsule Nitrofurant 2014-10 Yes 100mg Take 1 Cap Univers oin&Nit. 0-31 by mouth 2 ity o f Macrocryst 00:00: (two) [place] (MACROBID) 00 times Medical 100 mg daily. Branch capsule Nitrofurant 2014-10 Yes 100mg Take 1 Cap Univers oin&Nit. 0-31 by mouth 2 ity o f Macrocryst 00:00: (two) [place] (MACROBID) 00 times Medical 100 mg daily. Branch capsule Yes 1{tbl} Take 1 Tab U nivers vitamin 6-05 by mouth ity of w/FA 00:00: daily. [place] (PRENATABS 00 Medical RX) tablet Branch Yes 1{tbl} Take 1 Tab U nivers vitamin 6-05 by mouth ity of w/FA 00:00: daily. [place] (PRENATABS 00 Medical RX) tablet Branch Yes 1{tbl} Take 1 Tab U nivers vitamin 6-05 by mouth ity of w/FA 00:00: daily. [place] (PRENATABS 00 Medical RX) tablet Branch Yes 1{tbl} Take 1 Tab U nivers vitamin 6-05 by mouth ity of w/FA 00:00: daily. [place] (PRENATABS 00 Medical RX) tablet Branch Yes 1{tbl} Take 1 Tab U nivers vitamin 6-05 by mouth ity of w/FA 00:00: daily. [place] (PRENATABS 00 Medical RX) tablet Branch 2015-0 Yes 1{tbl} Take 1 Tab U nivers vitamin 6-05 by mouth ity of w/FA 00:00: daily. [place] (PRENATABS 00 Medical RX) tablet Branch Immunizations Ordered Filled Immunization Date Status Comments [facility] e Immunization Name Name HPV9 2020-06-23 Completed University of 00:00:00 [facility] HPV9 2020-06-23 Completed University of 00:00: [facility] HPV9 2020-06-23 Completed University of 00:00:00 [facility] HPV9 2020-06-23 Completed University of 00:00:00 [facility] HPV9 2020-05-23 Completed University of 00:00:00 [facility] HPV9 2020-05-23 Completed University of 00:00:00 [facility] HPV9 2020-05-23 Completed University of 00:00:00 [facility] HPV9 2020-05-23 Completed University of 00:00:00 [facility] HPV9 2020-05-23 Completed University of 00:00:00 [facility] HPV9 2020-05-23 Completed University of 00:00:00 [facility] Influenza Virus 2015-08-30 Completed Universit y of Vaccine Quad IM 3+ 00:00:00 [facility] Influenza Virus 2015-08-30 Completed Universit y of Vaccine Quad IM 3+ 00:00:00 [facility] Influenza Virus 2015-08-30 Completed Universit y of Vaccine Quad IM 3+ 00:00:00 [facility] Influenza Virus 2015-08-30 Completed Universit y of Vaccine Quad IM 3+ 00:00:00 [facility] Influenza Virus 2015-08-30 Completed Universit y of Vaccine Quad IM 3+ 00:00:00 [facility] Influenza Virus 2015-08-30 Completed Universit y of Vaccine Quad IM 3+ 00:00:00 [facility] Td 2012-06-07 Completed University of 00:00:00 [facility] Td 2012-06-07 Completed University of 00:00:00 [facility] Td 2012-06-07 Completed University of 00:00:00 [facility] Td 2012-06-07 Completed University of 00:00:00 [facility] Td 2012-06-07 Completed University of 00:00:00 [place] [facility] Td 2012-06-07 Completed University 00:00:00 [facility] Vital Signs Vital Name Observation Time Observation Value Comments Source BMI 2020-07-22 20:18:00 50.85 kg/m2 Universi ty of [place] [facility] Systolic blood 2020-07-22 20:18:00 118 mm[Hg] Univer sity of pressure [place] [facility] Diastolic blood 2020-07-22 20:18:00 81 mm[Hg] Unive rsity of pressure [place] [facility] Heart rate 2020-07-22 20:18:00 81 /min Universi ty of [place] [facility] Body temperature 2020-07-22 20:18:00 37.39 Ana Rosa Univ ersity of [place] [facility] Respiratory rate 2020-07-22 20:18:00 16 /min Univ ersity of [place] [facility] Body height 2020-07-22 20:18:00 144.8 cm Universi ty [facility] [place] [facility] Body weight 2020-07-22 20:18:00 106.595 kg Universi ty of [facility] Branch BMI 2020-07-22 20:18:00 50.85 kg/m2 Universi ty of [place] [facility] Systolic blood 2020-07-22 20:18:00 118 mm[Hg] Univer sity of pressure [place] [facility] Diastolic blood 2020-07-22 20:18:00 81 mm[Hg] Unive rsity of pressure [facility] Heart rate 2020-07-22 20:18:00 81 /min Universi ty of [place] [facility] Body temperature 2020-07-22 20:18:00 37.39 Ana Rosa Univ ersity of [place] [facility] Respiratory rate 2020-07-22 20:18:00 16 /min Univ ersity of [place] [facility] Body height 2020-07-22 20:18:00 144.8 cm Universi ty of [place] [facility] Body weight 2020-07-22 20:18:00 106.595 kg Universi ty of [place] [facility] Systolic blood 2020-06-23 14:32:00 108 mm[Hg] Univer sity of pressure [place] [facility] Diastolic blood 2020-06-23 14:32:00 77 mm[Hg] Unive rsity of pressure [place] [facility] Heart rate 2020-06-23 14:32:00 68 /min Universi ty of [place] [facility] Body temperature 2020-06-23 14:32:00 37.61 Ana Rosa Univ ersity of [facility] Respiratory rate 2020-06-23 14:32:00 16 /min Univ ersity of [facility] Body height 2020-06-23 14:32:00 144.8 cm Universi ty of [facility] Body weight 2020-06-23 14:32:00 105.87 kg Universi ty of [facility] BMI 2020-06-23 14:32:00 50.51 kg/m2 Universi ty of [facility] Systolic blood 2020-05-23 15:02:00 117 mm[Hg] Univer sity of pressure [facility] Diastolic blood 2020-05-23 15:02:00 79 mm[Hg] Unive rsity of pressure [facility] Heart rate 2020-05-23 15:02:00 68 /min Universi ty of [facility] Body temperature 2020-05-23 15:02:00 36.78 Ana Rosa [facility] Respiratory rate 2020-05-23 15:02:00 16 /min Univ ersity of [facility] Body height 2020-05-23 15:02:00 144.8 cm Universi ty of [facility] Body weight 2020-05-23 15:02:00 105.802 kg Universi ty of [facility] BMI 2020-05-23 15:02:00 50.47 kg/m2 Universi ty of [facility] Procedures Procedure Date / Time Performed Performing Clinician Sour e POCT TEST 2020-07-22 00:00:00 [facility] 9V[facility] 2020-06-23 14:39:51 Sabrina Dickerson Uni versity of [facility] GARDASIL 9 (HPV 9V) 2020-05-23 15:56:44 Sabrina Dickerson Uni versity of [facility] POCT TEST 2020-05-23 15:25:00 Sabrina Dickerson [facility] Encounters Start End Encounter Admission Attending Care Care Encounter Source Date/Time Date/Time Type Type Clinicians Facility Department ID 2021-01-20 2021-01-20 Patient Alexandro [facility] [id number] Univers 00:00:00 00:00:00 Outreach Kentrell PRIMARY [id number] i ty of [facility] [id number] Josefina HART [id number] [address] 2020-11-24 2020-11-24 Outpatient R [facility] [id number] Univers 15:30:00 15:30:00 [id number] ity [facility] 2020-11-24 2020-11-24 Outpatient R [facility] [id number] Univers 15:30:00 15:30:00 ity of [facility] 2020-08-21 2020-08-21 Outpatient R [facility] [id number] Univers 13:15:00 13:15:00 [id number] ity [facility] 2020-08-14 2020-08-14 Outpatient R [facility] [id number] Univers 12:30:00 12:30:00 [id number] ity [facility] 2020-08-05 2020-08-05 [facility] [id number] Univers 13:00:00 13:00:00 PATIENCE ity o [facility] 2020-08-05 2020-08-05 [facility] [id number] Univers 13:00:00 13:00:00 PATIENCE ity o [facility] 2020-07-22 2020-07-22 [facility] [id number] 15:08:16 16:01:11 Visit Patience Black 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 [facility] [id number] MATERNAL [id number] & CHILD 107 [facility] 2020-07-22 2020-07-22 [facility] [id number] Univers 15:08:16 16:01:11 Visit Patience Black 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 ity [facility] [id number] Dilan as MATERNAL [id number] Med ical & CHILD [address] [place] [address] 2020-07-22 2020-07-22 [facility] [id number] Univers 15:15:00 15:15:00 LANDONHudson [id number] ity o f [facility] 2020-07-22 2020-07-22 Outpatient R ALVARADO [facility] [id number] Univers 15:15:00 15:15:00 ANNIEMATT delphinelyle o f [facility] 2020-06-23 2020-06-23 Nurse Visit, Martin-Rmchp Nurse [facility] [id number] Univers 09:08:23 09:45:49 Visit Sabrina Dickerson 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 [facility] [id number] Dilan as MATERNAL [id number] Med ical & CHILD [address] [place] [address] 2020-05-23 2020-05-23 Outpatient R JORGE [facility] [id number] Univers 09:30:00 09:30:00 SABRINA quevedo [facility] Results Test Description Test Time Test Comments Results Result Comments Source POCT TEST 2020-07-22 20:22:00 Test Item Value Reference Range Interpretation Comme nts POCT PREG (test code = 1605) Negative On board controls acceptable with C Line (test code = 3574) Yes POCT PREG LOT # (test code = 3575) POCT PREG TEST DATE (test code = 3576) [id number] 20:22:00 Test Item Value Reference Range Interpretation Comments POCT PREG (test code = 1605) Negative On board controls acceptable with C Yes Line (test code = 3574) POCT PREG LOT # (test code = 3575) POCT PREG TEST DATE (test code = 3576) [facility] [id number] 15:25:00 Test Item Value Reference Range Interpretation Comments POCT PREG (test code = 1605) Negative On board controls acceptable with C Yes Line (test code = 3574) POCT PREG LOT # (test code = 3575) POCT PREG TEST DATE (test code = 3576) [facility] [id number] 15:25:00 Test Item Value Reference Range Interpretation Comments POCT PREG (test code = 1605) Negative On board controls acceptable with C Yes Line (test code = 3574) POCT PREG LOT # (test code = 3575) POCT PREG TEST DATE (test code = 3576) [facility]
[2022-04-19] MEDS ORDERED: OXYTOCIN/LR 20 UNIT/1,000 ML BAG IV SCH ×2 (05:00→12:00)
[2022-04-19 05:18] VITALS: BMI 49.2
[2022-04-19 06:14] LABS: Urine Appearance Clear (Clear); Urine Bilirubin Negative (Negative); Urine Blood Negative (Negative); Urine Color Yellow (Yellow); Urine Glucose Negative (Negative); Urine Protein Negative (Negative); Urine Specific Gravity 1.025 (1.005-1.030); Urine Urobilinogen 0.2 mg/dL (0.2-1.0)
[2022-04-19 06:19] LABS: Absolute Lymphocytes (CBC) 2.2 K/uL (0.7-4.9); Hematocrit 36.5 % (36.0-45.0); Lymphocytes % 21.3 % (15.3-44.8); MPV 9.3 fL (7.6-11.3); RBC Red Blood Cell Count 4.09 M/uL (3.86-4.86)
[2022-04-19 06:19] LABS: Urine Microscopic Reflex ORDER UMIC
[2022-04-19 06:21] LABS: Urine Bacteria <20 /HPF (<20); Urine RBC <5 /HPF (NONE SEEN)
[2022-04-19] MEDS ORDERED: FENTANYL CITR 100 MCG/2 ML IV ONE (10:00)
[2022-04-19] MEDS ORDERED: 0.2% ROPIVACAINE (200 MG/100 ML) BAG EP ONE (10:00)
[2022-04-19] MEDS ORDERED: ROPIVACAINE HCL 0.2% 20ML AMP EP ONE (10:00)
[2022-04-19] MEDS ORDERED: LIDOCAINE 1% 20 ML MDV ONE (11:27)
[2022-04-19] MEDS ORDERED: IBUPROFEN 600 MG TAB PO PRN (11:42)
[2022-04-19] MEDS ORDERED: DIPHENHYDRAMINE 25 MG TAB/CAP PO PRN (11:42)
[2022-04-19] MEDS ORDERED: Oxycodone HCl/Acetaminophen 1 TAB TAB PO PRN ×2 (11:42)
[2022-04-19] MEDS ORDERED: ACETAMINOPHEN 500 MG TAB PO PRN (11:42)
[2022-04-19] MEDS ORDERED: DOCUSATE NA/SENNA CONC 1 TAB PO PRN (11:42)
[2022-04-19] MEDS ORDERED: BISACODYL 10 MG RECTAL SUPP RC PRN (11:42)
--- NOTE | 2022-04-19 14:04 | OP ---
Surgeon: Lenin Yousif MD Procedure In Detail: A 26-year-old, 4, para 3, 39 weeks 2 days, followed antepartum without complications. Rh positive, immune to rubella, negative strep, negative COVID as far as we know. 39 weeks 2 days, this morning was 3.5 cm, rupture of membranes, clear fluid, at approximately 6 cm requ ested and received epidural anesthesia. Second stage consisted of basically 1 set of pushes, deliver y of an estimated 6.5 to 7 pounds male infant, Apgars 9 and 9. Very small first-degree laceration to posterior fourchette requiring 1 stitch of 2-0 chromic. Schultze delivery of the placenta, which wa s intact and normal. Estimated 300 cc or less blood loss. The patient tolerated all procedures well . Final Diagnoses: Term intrauterine at 39 weeks 2 days, labor induction, vaginal delivery, epidural anesthesia. KRYS/OSVALDO Voice ID: [id number] Report ID: [id number]
--- NOTE | 2022-04-19 15:15 | PREOPHP ---
Date of Admission: 04/19/2022 History Of Present Illness: A 26-year-old 4, para 3, 39 weeks 2 days, anastasia regularly. Baby looks good. Rh positive, immune to rubella, negative strep. COVID status pending. 3.5 cm, 6 0% effaced, vertex, -1 station, rupture of membranes clear fluid. The patient is going to try natura l, but of course preserves the right to request an epidural if she desires. She knows if she is misael g to do that she needs to do it before she reaches 6 cm. Otherwise, she will probably be too fast af ter that. Family History: Noncontributory. Past Medical History: Noncontributory. Allergies: NO ALLERGIES. Family History: She does have an aunt and an uncle with diabetes. Aunt with hypertension. Physical Examination: HEENT: Clear. Pupils equal, round, reactive to light and accommodation. Conjunctivae well perfused . No oral, lingual, or buccal lesions. Chest and Lungs: Clear. Heart: Without murmurs, thrills, heaves, rubs. Breasts: Without masses on previous visits. Abdomen: Term size. Extremities: Clear without edema, cyanosis, or clubbing. Anticipate delivery sometime later today. Full labor talk given. KRYS/OSVALDO Voice ID: [id number]
[2022-04-19] MEDS ORDERED: Ringers Lactate 1,000 ML IV ONE (21:41)
[2022-04-20 00:18] LABS: RPR (Rapid Plasma Reagin) NON-REACT (NON-REACT)
--- NOTE | 2022-04-20 12:36 | DS ---
Hospital Course: A 26-year-old, 3, para 2, at 39 weeks 2 days. Delivered a 6-pound 15-ounce male , Apgars 9 and 9. No episiotomy. One small laceration at the posterior fourchette requi ring 1 stitch of 2-0 chromic. Schultze delivery of the placenta. Estimated blood loss 300 cc or les s. Rh positive, immune to rubella, negative strep. Had epidural anesthesia. ; afebrile, ambulating, voiding. Lochia is normal. No post epidural problems. She has had her Tdap shot. Has no questions or problems this morning. Dismissed to return to my office in 4 to 6 weeks to report an y temperature elevation of 100 degrees or greater, severe pain, heavy bleeding, or any other type of abnormalities. Requests no analgesics on dismissal. Final Diagnoses: Term intrauterine , vaginal delivery at 39 weeks 2 days, epidural anesthes ia. KRYS/OSVALDO Voice ID: [id number] Report ID: [id number]
[2022-04-20 14:23] VITALS: BP 126/72; TEMP 97.3
== END 2022-04-20 14:40 | disposition home or self-care (01) | DRG 807 ==
LOC: 2ND-WC 04:28 → EDSTATUS 07:30
PROVIDERS: ADMIT Specialist; ATTEND Specialist
PROC: 10E0XZZ Delivery of Products of Conception, External Approach (ICD-10-PCS; principal; 2022-04-19)
PROC: 0HQ9XZZ Repair Perineum Skin, External Approach (ICD-10-PCS; 2022-04-19)
DX: O70.0 First degree perineal laceration during delivery (principal); Z37.0 Single live birth; Z3A.39 39 weeks gestation of pregnancy; Z20.822 Contact with and (suspected) exposure to COVID-19
CPT/HCPCS: 36415; 81003; 81015; 85025; 86592; 86901; 87340; 99218; J0595; J2210; J2550; J2590; J2795; J3010; J7120; U0003